=== PATIENT | female | born 1940 | race Caucasian/White ===

== ENCOUNTER 2018-12-21 09:29 | Outpatient (RCR) | payer MEDICARE, BC ==
--- NOTE | 2018-12-12 16:05 | SPEECH INITIAL EVALUATION ---
INITIAL SPEECH PATHOLOGY EVALUATION REPORT Patient Name: Henna Rtaliff Date of Evaluation: 12/11/2018 Patient : 1940 Physician: El William MD Clinician: Nahomy Duong M.S., [facility])-POWER SUPPLY ENGINEER Treatment Dx: Mild cognitive-linguistic deficits; Mild expressive aphasia BACKGROUND Ms. Yuridia Ratliff is a 78-year-old female referred for a cognitive linguistic evaluation at [facility] outpatient services by her primary care physician. 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 She was transferred to [facility] after being found down at her home in [place], [place]. The patient was subsequently referred to [facility] on November 14, where she received intensive physical, occupational, and speech therapy services. The patient lives alone in [place], and was previously independent with all functions. She is currently staying with her son and [id number], though her ultimate goal is to return home independently. Per chart review, speech therapy interventions at [facility] focused on deficits in word retrieval, attention to detail, memory, executive functions (planning, sequencing), and problem solving. COGNITIVE LINGUISTIC ASSESSMENT Assessment procedures included a patient interview, informal evaluation of expressive and receptive language, administration of the Functional Activities Questionnaire (FAQ), and administration of the Donahue Cognitive Assessment (version 7.3). The Functional Activities Questionnaire (FAQ) is an assessment utilized to measure a patients perceived performance during completion of instrumental activities of daily living (IADLs), including preparation of balanced meals and management of personal finances. A cutoff score of 9 or greater indicates impaired function and possible cognitive impairment. The patient was asked to rate her performance on a series of IADL scenarios using the following scale: (3) Dependent, (2) Requires assistance, (1) Has difficulty, but does by self, and (0) Normal, does not require assistance. The patient reported a total score of 17, with indication of having difficulty with remembering appointments, family occasions, and medication times, and requiring assistance with managing finances and keeping track of current events. The patient further reported being dependent on her family for completion of cooking, driving, and shopping for groceries or household necessities. She expressed desire to increase independence across all identified areas of difficulty, with ultimate goal of returning to her home in [place]. The patient achieved a total score of 22/30 on the Donahue Cognitive Assessment (MoCA) Version 7.3 (WFL = 26/30), indicative of mild to moderate cognitive linguistic deficits. Of note, records indicate that the patient completed alternative versions of the MoCA at [place] on 11/30 and 12/05. She achieved respective scores of 14/30 and 16/30. Performance continues to trend upwards, though short-term memory, working memory, problem solving, and verbal expression (word retrieval, verbal fluency, thought organization) skills continue to be mild to moderately impaired. The patient frequently identified mistakes throughout completion of assessment items, but struggled with effective problem solving skills for accurate correction. She also struggled to retain novel information, both immediately and following a brief delay. Use of categorical cues effectively supported retrieval of information from short-term memory storage. The patient exhibited strong insight into areas of difficulty, and acknowledged need to address memory and problem solving deficits prior to resuming independent completion of higher-level cognitive linguistic tasks. Relative areas of strength were further noted during tasks requiring planning, organization, focused attention, mental abstraction, and orientation. Informally, receptive language appears to be a relative area of strength. The patient demonstrated comprehension of all discussed information, including complex medical history and provision of multi-level instructions for completion of structured assessment items. Expressively, mild aphasia persists. Word retrieval deficits were noted throughout conversational activities, with intermittently successful use of circumlocution to repair episodes of anomia. Expressive language not assessed in written modality. Will address in subsequent tx encounters. Ms. Medina cognitive-linguistic impairments may functionally limit her ability to consistently or efficiently complete the following activities: - Effectively solving problems for safe participation in: - Medication management - retail management keyholder - Driving / navigation - Organization of daily schedule and consistent recall for attending appointments, meeting deadlines, administering medications - Communicating complex information regarding medical care RECOMMENDATIONS The patient presents with mild to moderate cognitive linguistic deficits that may functionally impact her participation in socialization opportunities and complex activities of daily living (e.g., appointment management, driving, medication management). Speech-language pathology services are warranted to provide instruction in external compensatory strategies, expressive language techniques, and cognitive exercises to support identified areas of impairment and to help the patient reach her goals of returning to a high level of independence. 1. ST 2x/wk for 5 weeks, to address above described deficits PROGNOSIS: Good. Patient has great insight, high PLOF,and expresses motivation to participate PLAN OF CARE Short Term Goals 1. Pt will recall functional, prospective information (e.g., medication administration times, bill dates, upcoming appointments) with independent use of external compensatory memory systems. 2. Pt will utilize error awareness techniques (e.g., progress monitoring, calculators, performance review) to support accurate completion of senior financial reporting analyst tasks with occ cues to support return to independent management of IADLs. 3. Pt will complete complex expressive language activities (i.e., complex conversation, description of medical needs) with occ cues for use of word- finding strategies and self-correction of expressive language errors. Long-Term Goals Resume independence with IADLs and improve functional communication for safe and successful participation in home and community activities. Thank you for this referral. Please call [phone] to contact the POWER SUPPLY ENGINEER Nahomy Duong M.S., [facility])-POWER SUPPLY ENGINEER Physician Signature Date [*] MTDD
--- NOTE | 2018-12-12 17:00 | OT INITIAL EVALUATION ---
SUBJECTIVE: Patient is an 78 year old right hand dominant female who is referred to OP OT services s/p left MCA stroke which occurred on 11/11/18. Patient was living in [facility] when this occurred. Patient was transferred to [place] and from there admitted to [facility]. Patient was at this facility from 11/15/18 through 12/07/18. Patient reports that she is independent with self cares and is now using a walker. Patient is living with her son in [place]. They take care of the IADLs for the patient. Patient is hopeful that she will be able to return back home. Family is concerned about her walking and cognition. Previous Medical History: please refer to chart Occupation: N/A OBJECTIVE: ROM: AROM Right Left Shoulder Flexion WFL WFL Shoulder Extension WFL WFL Shoulder Abduction WFL WFL Elbow Flexion/Extension WFL WFL Wrist Flexion/Extension WFL WFL Strength: MMT: Right Left Shoulder Flexion 5/5 5/5 Shoulder Extension 5/5 5/5 Shoulder Abduction 5/5 5/5 Elbow Flexion/Extension 5/5 5/5 Wrist Flexion/Extension 5/5 5/5 (5= normal, 4= good, 3= fair, 2= poor, 1= trace) Geriatric Nurse Assistant Right = 60.7# (Age/gender normative= 42.6#) Left=50# (Age/gender normative=37.6#) Lateral Pinch Right = 15.8# (Age/gender normative= 12.6#) Left= 12.8# (Age/gender normative= 11.5#) 3 Point Pinch Right = 14.8# (Age/gender normative=12#) Left= 12.7# (Age/gender normative= 11.5#) Sensation: 5/5 for stereognosis bilateral hands; 10/10 for textures bilateral hands Vision: minimal filed cut on the right peripheral visual field Special Test: 9 Hole Peg Test (dexterity) Right= 22 seconds (Age/gender normative= 17.9 seconds) Left= 23 seconds (Age/gender normative= 19.6 seconds) ASSESSMENT Patient demonstrates with above moth exterminator and pinch strength. UB strength and range of motion have not been affected. Patient does demonstrate with slight decrease in fine motor coordination and difficulty with handwriting skills. Patient to benefit from OT services to address these two areas. Short Term Goals 1.Patient will completed the 9 Hole Peg test with the right hand in 19 in order to complete ADLs in a timely manner. 2. Patient will be able to write her name legibility for completing finances. 3. Patient will be able to sequence correct steps in higher level ADLs such as cooking, shopping, and laundry in order to return back to her home PLAN: Plan to see patient 2 times a week for 2-4 weeks. Plan of care to include: ther ex, ther act, neuro-reeducation, self cares Thank you for this referral. If you have any questions, concerns, or comments about this report or plan, please contact me at [phone]. Karoline Mendes MS, OTR/L Occupational Therapist DENISE
--- NOTE | 2018-12-12 17:37 | PT INITIAL EVALUATION ---
MEDICAL DIAGNOSIS: Post CVA TREATMENT DIAGNOSIS: same DATE OF ONSET: 11/11/18 SUBJECTIVE: Yuridia Ratliff presents to physical therapy status post left MCA stroke on 11/11/18. Patient was living in [facility] when this occurred. Patient was transferred to [place] and from there admitted to [facility]. Patient was at this facility from 11/15/18 through 12/07/18. Patient reports that she is independent with self cares and is now using a walker. Patient is living with her son in [place].. Patient is hopeful that she will be able to return back home. Family is concerned about her walking and cognition. She reports that she feels like her strength is doing well and would like to focus more on her balance and gait mechanics. She reports that she feels like she is about 50% recovered to where she wants to be. She denies any current pain. REHAB PROBLEM LIST: Decreased Strength Decreased Endurance Decreased Balance Decreased Function Decreased ADL's Decreased Mobility Decreased Gait PREVIOUS MEDICAL HISTORY: See EMR OCCUPATION: Retired OBJECTIVE: Posture: She demonstrates forward head, B rounded shoulder, increased thoracic kyphosis, and decreased lumbar lordosis. ROM: B LE's: WFL's. Strength: B hip flexion, abduction, and extension, B ankle DF and PF: 4+/5. B adduction and B knee flexion and extension: 5/5. Special Tests: 6 minute walk test: 342 feet. Mobility: Modified Independent Gait: With 4WW, she demonstrated the following gait mechanics: forward trunk lean, increased base of support, decreased B step lengths, decreased B step clearance, no LOB throughout the session, decreased velocity, increased B UE support, decreased pelvic rotation, and decreased hip and knee and ankle flexion. Balance: 4 stage balance test: condition 1: 3-5 seconds. condition 2: 0 seconds. condition 3: o seconds, condition 4: 0 seconds. Unable to get in those test positions without falling ASSESSMENT: Yuridia will benefit from skilled physical therapy addressing the listed impairments to improve function and QOL to return to prior level of function. Short Term Goals 6 weeks: Pt will be able to transition from 4WW to cane to independent with minimal to no fall risk to improve function and QOL. 6 weeks: Pt will improve 4 stage balance to be able to do all conditions for at least 30 seconds except for the single leg stance for 10 seconds to improve function and QOL. 6 weeks: Pt will improve endurance by improving her 6 minute walk test from baseline to greater than 800 feet to improve function and QOL. Patient's Goals to improve balance and walking PLAN: Patient to be seen for Manual Therapy/STM/MET Strengthening/condition Spinal Stabilization Work Hardening/Cond Stretching Neuromuscular Re-ed Closed Chain Program Posture/Body mechanics Gait Trg/Balance Trg Home Exercise Program Therapeutic Activities 2x/Week for 6 Weeks If you have any questions, comments, or concerns about this report or plan, please contact me at . Thank you, Jose Mckeon, PT, DPT MTDD
[2018-12-21] MEDS ORDERED: VENL150C61 PO (17:22)
[2018-12-21] MEDS ORDERED: INSU100I42 SUBQ (17:22)
[2018-12-21] MEDS ORDERED: ATOR40TA24 PO (17:22)
[2018-12-21] MEDS ORDERED: HUM100VI2 SUBQ (17:22)
[2018-12-21] MEDS ORDERED: TORS20TA30 PO (17:22)
[2018-12-21] MEDS ORDERED: CARV12.577 PO (17:22)
[2018-12-21] MEDS ORDERED: SPIR25TA80 PO (17:22)
[2018-12-21] MEDS ORDERED: APIX5TAB PO (17:22)
== END 2018-12-21 18:00 | disposition home or self-care (01) ==
LOC: PT 09:29
PROVIDERS: ATTEND Physical Medicine & Rehabilitation
DX: I63.9 Cerebral infarction, unspecified (principal); R41.841 Cognitive communication deficit
CPT/HCPCS: 92523; 97162; 97165

== ENCOUNTER 2018-12-21 16:30 | Emergency (ER) | payer MEDICARE, BC ==
--- NOTE | 2018-12-21 16:50 | ER Report ---
History and Physical Time Seen By MD: 16:35 Hx. of Stated Complaint: FELL A COUPLE DAYS AGO. HAD A HEADACHE TODAY AND WENT TO URGENT CARE-FOUND A SUBDURAL BLEED HPI/ROS CHIEF COMPLAINT: sent in for headbleed after a fall HISTORY OF PRESENT ILLNESS: PT states she had a fall in her bedroom on Monday "I was pulling clothes out of the dresser and turned funny and went down". Pt hit her buttocks and her head. Pt initially felt okay but started with a headache. PT went to urgent care today to be checked for increased urinary frequency and urinary incontinece and the headache. Pt found to have UTI and intracranial bleed. Pt is on eliquis pt sent to ed for further evaluation and treatment. Pt is on eliquis for a MCA stroke which she had 11/11/18 in [facility]. Pt was given lytics in the ED and life flighted to [place]. Pt is now here living with family in [place]. PT found to have numerus parenchymal hematoma as well as a subdural. REVIEW OF SYSTEMS: Constitutional: No fever, no chills. Eyes: No discharge. ENT: No sore throat. Cardiovascular: No chest pain, no palpitations. Respiratory: No cough, no shortness of breath. Gastrointestinal: No abdominal pain, no vomiting. Genitourinary: + frequency, + dysuria, + incontinence Musculoskeletal: No back pain. Skin: No rashes. Neurological: + headache. Allergies: Coded Allergies: No Known Drug Allergies (Unverified , 12/21/18) Home Meds Reported Medications Venlafaxine Hcl (EFFEXOR XR) 150 Mg Cap.er.24h, 150 MG PO QDAY 12/21/18 Torsemide (TORSEMIDE) 20 Mg Tablet, 40 MG PO DAILY 12/21/18 Spironolactone (SPIRONOLACTONE) 25 Mg Tablet, 25 MG PO DAILY, TAB 12/21/18 Insulin NPH Hum/Reg Insulin Hm (Novolin 70-30 Flexpen) 100 Unit/Ml (70-30) I nsuln.pen, 15 UNITS SUBQ QHS 12/21/18 Insulin NPH Hum/Reg Insulin Hm (Humulin 70-30 Vial) 100 Unit/Ml (70-30) Vial, 45 UNITS SUBQ QAM 12/21/18 Carvedilol (COREG) 12.5 Mg Tablet, 12.5 MG PO BID, #10 TAB 12/21/18 Atorvastatin Calcium (LIPITOR) 40 Mg Tablet, 1 TAB PO QDAY, TAB 12/21/18 Apixaban (ELIQUIS) 5 Mg Tablet, 5 MG PO BID 12/21/18 Past Medical/Surgical History Pmhx: Htn, dm, hyperlipid, depression Reviewed Nurses Notes: Yes Old Medical Records Reviewed: Yes Hx Smoking: No Hx Alcohol Use: No Constitutional Vital Sign - Last 24 Hours 12/21/18 16:41 Temp 97.3 Pulse 73 Resp 20 B/P (MAP) 143/44 Pulse Ox 96 O2 Delivery Room Air Physical Exam General Appearance: The patient is alert, has no immediate need for airway protection and no signs of toxicity. Eyes: Pupils equal and round no pallor or injection, EOMI ENT: no pharyngeal erythema or exudates, Mucous membranes are moist, TM are nl b/l, neg hemotympanums Respiratory: There are no retractions, lungs are clear to auscultation. Cardiovascular: Regular rate and rhythm. pulses are equal and symmetrical Gastrointestinal: Abdomen is soft and non tender, no masses, bowel sounds normal, no guarding, no rigidity or rebound Neurological: Cranial nerves II-XII grossly intact, no sensory or motor loss Skin: Warm and dry, no rashes. Musculoskeletal: Neck is supple non tender, no vertebral tenderness Extremities are nontender, nonswollen and have full range of motion. DIFFERENTIAL DIAGNOSIS: After history and physical exam differential diagnosis was considered for intracranial bleed on blood thinners. Medical Decision Making Data Points Result Diagram: 12/21/18 1635 12/21/18 1635 Laboratory Hematology Test 12/21/18 16:35 White Blood Count 8.7 k/uL (4.5-11.0) Red Blood Count 4.24 M/uL (4.17-5.56) Hemoglobin 12.6 g/dL (12.0-16.0) Hematocrit 37.4 % (34.0-47.0) Mean Corpuscular Volume 88.3 fL (80.0-96.0) Mean Corpuscular Hemoglobin 29.6 pg (26.0-33.0) Mean Corpuscular Hemoglobin Concent 33.6 g/dL (32.0-36.0) Red Cell Distribution Width 14.3 % (11.5-14.5) Platelet Count 239 K/uL (150-450) Mean Platelet Volume 8.8 fL (7.2-11.1) Neutrophils (%) (Auto) 63.0 % (39.4-72.5) Lymphocytes (%) (Auto) 25.3 % (17.6-49.6) Monocytes (%) (Auto) 7.3 % (4.1-12.4) Eosinophils (%) (Auto) 3.7 % (0.4-6.7) Basophils (%) (Auto) 0.7 % (0.3-1.4) Nucleated RBC Relative Count (auto) 0.0 /100WBC Neutrophils # (Auto) 5.5 K/uL (2.0-7.4) Lymphocytes # (Auto) 2.2 K/uL (1.3-3.6) Monocytes # (Auto) 0.6 K/uL (0.3-1.0) Eosinophils # (Auto) 0.3 K/uL (0.0-0.5) Basophils # (Auto) 0.1 K/uL (0.0-0.1) Nucleated RBC Absolute Count (auto) 0.00 K/uL Chemistry Test 12/21/18 16:35 Sodium Level 141 mmol/L (137-145) Potassium Level 3.6 mmol/L (3.5-5.0) Chloride Level 106 mmol/L (98-107) Carbon Dioxide Level 24 mmol/L (22-31) Blood Urea Nitrogen 25 mg/dl (7-18) Creatinine 1.30 mg/dl (0.52-1.04) Glomerular Filtration Rate Calc 39.7 Random Glucose 62 mg/dl (75-110) Calcium Level 9.7 mg/dl (8.4-10.2) Total Bilirubin 0.5 mg/dl (0.2-1.3) Aspartate Amino Transf (AST/SGOT) 37 U/L (0-35) Alanine Aminotransferase (ALT/SGPT) 28 U/L (0-56) Alkaline Phosphatase 72 U/L (0-126) Total Protein 7.5 g/dl (6.3-8.2) Albumin 4.3 g/dl (3.5-5.0) Coagulation Test 12/21/18 16:35 Prothrombin Time 16.0 seconds (12.0-14.4) Prothromb Time International Ratio 1.27 Activated Partial Thromboplast Time 33 seconds (23-35) ED Course/Re-evaluation ED Course Call out to [facility] . 12/21/2018 5:00:[address] Noble, Trauma surgeon, who accepts pt at [facility]. would like for TCC to be given but our facility does not haveit. He states that they will give it to her when she arrives at their facility. PTs GCS is 15. 12/21/2018 5:09:52 pm Spoke with pt and her daughter. Pt is afraid to fly and since this bleed is 1-2 dasy old I do not feel we need to fly. Will send down by ambulance which pt is agreeable to. 12/21/2018 5:40:30 pm EMS in route to hospital Decision to Disposition Date: Dec 21, 2018 Decision to Disposition Time: 17:40 Depart Departure Latest Vital Signs Vital Signs Date Time Temp Pulse Resp B/P (MAP) Pulse Ox O2 Delivery O2 Flow Rate FiO2 12/21/18 16:41 97.3 73 20 143/44 96 Room Air Impression: Primary Impression: Cerebral parenchymal hemorrhage Additional Impressions: Subdural hematoma UTI (urinary tract infection) Condition: Condition Unchanged Disposition: XFER TO ACUTE CARE HOSPITAL Problem Qualifiers Primary Impression: Cerebral parenchymal hemorrhage Intracerebral hemorrhage etiology: traumatic Encounter type: initial encounter Laterality: left Loss of consciousness presence/duration: without LOC Qualified Codes: S06.350A - Traumatic hemorrhage of left cerebrum without loss of consciousness, initial encounter Additional Impressions: UTI (urinary tract infection) Urinary tract infection type: site unspecified Hematuria presence: without hematuria Qualified Codes: N39.0 - Urinary tract infection, site not specified JUANCHO MARTÍNEZ DO Dec 21, 2018 16:50
[2018-12-21 17:06] LABS: PLATELET COUNT, AUTOMATED 239 K/uL (150-450)
[2018-12-21 17:11] LABS: INR 1.27
[2018-12-21] MEDS ORDERED: VENL150C61 PO (17:22)
[2018-12-21] MEDS ORDERED: SPIR25TA80 PO (17:22)
[2018-12-21] MEDS ORDERED: CARV12.577 PO (17:22)
[2018-12-21] MEDS ORDERED: TORS20TA30 PO (17:22)
[2018-12-21] MEDS ORDERED: ATOR40TA24 PO (17:22)
[2018-12-21] MEDS ORDERED: APIX5TAB PO (17:22)
[2018-12-21] MEDS ORDERED: HUM100VI2 SUBQ (17:22)
[2018-12-21] MEDS ORDERED: INSU100I42 SUBQ (17:22)
[2018-12-21 18:00] VITALS: BP 132/64
== END 2018-12-21 18:23 | disposition short-term general hospital (02) ==
LOC: ER 16:43
DX: S06.350A Traumatic hemorrhage of left cerebrum without loss of consciousness, initial encounter (principal); N39.0 Urinary tract infection, site not specified
CPT/HCPCS: 82040; 82247; 82310; 82374; 82435; 82565; 82947; 84075; 84132; 84155; 84295; 84450; 84460; 84520; 85025; 85610; 85730; 86850; 86900; 86901; 99285

== ENCOUNTER → 2018-12-21 | Outpatient (CLI) | payer MEDICARE, BC ==
[~2018-12-21] MED LIST: APIX5TAB PO; ATOR40TA24 PO; CARV12.577 PO; HUM100VI2 SUBQ; INSU100I42 SQ; SPIR25TA80 PO; SUCR1TAB51 PO; TORS20TA30 PO; VENL150C61 PO
== END ==
LOC: AMB 18:16
PROVIDERS: ATTEND Nurse Practitioner
DX: S06.5X9A Traumatic subdural hemorrhage with loss of consciousness of unspecified duration, initial encounter (principal)
CPT/HCPCS: A0425; A0426

== ENCOUNTER → 2018-12-21 | Outpatient (CLI) | payer MEDICARE, BC ==
--- NOTE | 2018-12-21 16:14 | RADIOLOGY IMAGING REPORT ---
FACILITY: [facility] [place] [place] PATIENT NAME: Yuridia Ratliff : 1940 MR: [id number] V: [id number] EXAM DATE: ORDERING PHYSICIAN: ELIECER BUI TECHNOLOGIST: Location[place] [facility] [place] Patient: Yuridia Ratliff : 1940 Visit/Account:[id number] Date of Sevice: 12/21/2018 EXAMINATION: CT head without IV contrast HISTORY: History of stroke six weeks ago, dizziness, fall on Monday COMPARISON: None. TECHNIQUE: Contiguous axial images were obtained from the skull base to the vertex without intraven ous contrast. Sagittal and coronal reformatted images are also submitted. One of the following dose optimization techniques was utilized in the performance of this exam: Autom ated exposure control; adjustment of the mA and/or kV according to the patient's size; or use of an i terative reconstruction technique. Specific details can be referenced in the facility's radiology C T exam operational policy. FINDINGS: Brain volume: There is mild to moderate brain atrophy, not unusual for age although somewhat greater in the left hemisphere. Ventricles: The left lateral ventricle is asymmetrically larger than the right, likely from ex vacuo dilatation. Ischemic changes: There are subacute to chronic infarcts noted in the left basal ganglia, left deep white matter and left occipital lobe.. Hemorrhage: 6 x 7 mm hematoma in the left frontal subcortical white matter. There is a hematoma joanna suring 7 x 5 mm along the left inferior frontal lobe anteriorly. There is a hematoma measuring 2.0 x 1.0 x 0.9 cm adjacent to the left cerebral peduncle. There a smaller hemorrhages in the left frontal lobe, left temporal lobe and a small subdural collect ion along the anterior falx. Questionable small volume of subdural blood products posteriorly and bi laterally along the tentorium. Vessels: Calcified plaque of the vertebral arteries and carotid siphons at the skull base. Extra-axial: Negative. Calvarium/scalp: Negative. Skull base/visualized face: Negative. Visualized sinuses/orbits: Negative. IMPRESSION: 1. Numerous parenchymal hematomas measuring up to 2.0 x 1.0 x 0.9 cm in the left hemisphere and a sm all subdural hematoma along the anterior falx. These are likely 1-2 days old. 2. Subacute to chronic ischemic changes involving the left basal ganglia, white matter and left occi pital lobe. 3. Given the left greater than right subacute and chronic findings described above, left carotid dis ease is suspected. Results were discussed with ELIECER BUI at 12/21/2018 3:59 PM. Report Dictated By: ALPESH RENDON at 12/21/2018 3:50 PM Report E-Signed By: ALPESH RENDON at 12/21/2018 4:07 PM WSN:[id number]
== END ==
LOC: CT 15:29
PROVIDERS: ATTEND Nurse Practitioner Family
DX: I62.00 Nontraumatic subdural hemorrhage, unspecified (principal)
CPT/HCPCS: 70450